=== PATIENT | female | born 1950 | race Caucasian/White ===

== ENCOUNTER 2024-09-22 05:54 | Day surgery (SDC) | payer MEDICARE, OTHER, SELFPAY ==
[2024-09-13 11:35] VITALS: BMI 26.5
[2024-09-22] VITALS (15 sets, daily range): BP systolic 81–140; BP diastolic 47–75
[2024-09-22 08:38] LABS: ACT-LR - POC 287 Seconds (116-155)
[2024-09-22 09:02] LABS: ACT-LR - POC 300 Seconds (116-155)
--- NOTE | 2024-09-22 10:14 | ITS.CL.ABL ---
Audience Development Manager - Ablation
Ablation
Procedure Report:
ELECTROPHYSIOLOGY ABLATION STUDY
DATE:: September 22, 2024��������������������������REFERRING: Dr. Izaiah Tristan
INDICATION: Paroxysmal supraventricular tachycardia in the form of atrial fibrillation.��As above
HISTORY: See H and P.��As above
ANTIARRHYTHMIC DRUG: Dofetilide 250 mics twice daily
PRE-PROCEDURE TANIA: No atrial thrombus
PRESENTING RHYTHM: Sinus bradycardia
'TIME-OUT':��called and confirmed.
SEDATION/ANESTHESIA:��provided via the anesthesia department using general anesthesia (LMA).
INTRAVENOUS/ARTERIAL ACCESS:
Right femoral venous - 10 Fr,
Left femoral venous - 8 Fr, 6 Fr
[id number] suture to bilateral groins
Ultrasound guidance for bilateral femoral vein access was utilized by me to obtain access with demonstration of normal anatomy
CHADS-VASC Score:
HAS-Bled Score
PROCEDURE:
1.��A decapolar CS catheter was placed within the CS for mapping and pacing.��This was also used as the reference catheter for the 3-D map.
2. The intracardiac ultrasound catheter was positioned in the RA to identify the FO for targeting of transseptal puncture, assist��in identification of the pulmonary vein ostia, monitoring pre and post ablation pulmonary vein flow velocities,
monitoring for 'bubble' formation during RF application as a sign of thermal injury,��and to monitor for pericardial effusion during mapping and ablation procedure.���Left atrial size, LV ejection fraction, and pulmonary vein flows were monitored
pre and post ablation procedure. The other valves were inspected and found to be free of significant regurgitation or stenosis.
3.��Half of the calculated heparin bolus was administered prior to the first transeptal puncture.��Transseptal puncture was performed to diagnose RA and LA pressure so that safety of LA mapping and ablation could be further assessed, and to access
the left atrium and pulmonary veins for mapping and ablation.��This entailed advancing an 16 [place] needle with dilator into the superior vena cava and withdrawing both (monitoring intracardiac ultrasound, fluoroscopy and tip pressure) with the tip
oriented toward the atrial septum.��The fossa ovalis was engaged (indicated by sudden displacement of the sheath tip as well as tenting of the fossa seen on intracardiac ultrasound).��Left atrial access required a pass with the [place]rough needle
extended.��Left atrial catheter position was confirmed by pressure monitoring (RA mean pressure 8 mm Hg and LA mean presure 12 mm Hg), LA saturation (99%),��as well as fluoroscopy.��The sheath was advanced over the dilator and positioned in the left
atrium.��This procedure was repeated for the Agilis sheath.��The remainder of the calculated heparin bolus was administered and heparin was
infused to maintain ACT at 300 -350 seconds throughout the case.
4.��RA pacing was performed via the proximal decapolar poles and LA pacing was performed via the distal decapolr poles.
5. A quadrapolar catheter was first positioned at the His position for His Bundle recording which was tagged via the 3-D Navex sytem, and then passed to the RVA for RV pacing and recording.
6. The multipolar catheter and PFA catheter placed in each of the LIPV, LSPV, RSPV and the RIPV.��
7.��Next, a 3-D map was created using Navex.���A 3-D reconstructed CT image was compared to the 3-D Navex map to assist in anatomic interpretation, mapping and ablation.��The CT image and the NavX image were fused.
8. A total of 88 lesions were given to the posterior wall and the pulmonary veins with entrance and exit block in all 4 pulmonary veins and left atrial posterior wall. EP study post procedure demonstrated no other nonpulmonary triggers for atrial
fibrillation or new or supraventricular arrhythmia.
9. Normal sinus and anemia and function.
TOTAL FLOURO TIME: 12.6 minutes 126 mGy
TOTAL RF DURATION: 0 minutes
REVERSAL OF HEPARIN: 30 mg of protamine, slow IV administration
COMPLICATIONS:
None
Intracardiac US shows no pericardial effusion post ablation.
SUMMARY:��
Complex left atrial mapping and ablation.
PVI and left atrial posterior wall isolation as above
RECOMMENDATIONS:
1. Ambulate in 4 hours
2. Resume anticoagulation
3.� Discontinue dofetilide 1 to 3 months
4.��Consider same-day discharge
Copy to: Dr. Izaiah Tristan
--- NOTE | 2024-09-22 14:36 | W.PN.UPDATE ---
Update Note
Progress Note Update
74 yo WF s/p PVI (same day). She denies cp, sob, jose maria diet, voiding, EKG Sr, b/l groins c/d/i no HT, soft. She will resume Xarelto tonight at 4pm at home. She will stop dofetilide and continue metoprolol. Activity restrictions reviewed. She will f/u
[facility] [employer] in 2 weeks then continue cardiac care with Dr. Hanley. She is for d/c home after 220p.
SUMMARY:��
Complex left atrial mapping and ablation.
PVI and left atrial posterior wall isolation as above
RECOMMENDATIONS:
1. Ambulate in 4 hours
2. Resume anticoagulation
3.� Discontinue dofetilide 1 to 3 months
4.��Consider same-day discharge
Copy to: Dr. Izaiah Tristan
== END 2024-09-22 14:44 | disposition home or self-care (01) ==
LOC: CATH 05:54
PROVIDERS: ATTENDING PHYSICIAN Internal Medicine Cardiovascular Disease; FAMILY PHYSICIAN Nurse Practitioner Adult Health; OTHER PHYSICIAN Internal Medicine Interventional Cardiology
DX: I48.91 Unspecified atrial fibrillation (principal); Z79.899 Other long term (current) drug therapy; Z79.82 Long term (current) use of aspirin; Z79.01 Long term (current) use of anticoagulants
CPT/HCPCS: C1730; C1769; C1892; C1759; C1733; C1894; 85347; 86900; 86901; 93005; 93656; 93657; C1732; C1766